=== PATIENT | male | born 1995 | race Caucasian/White ===

== ENCOUNTER 2019-04-25 01:44 | Emergency (ER) | payer MEDICAID ==
[~2019-04-25] VITALS: Ht 175.3 cm; Wt 78.0 kg
[2019-04-25 01:55] VITALS: Ht 175.3 cm; Wt 78.0 kg
[2019-04-25 03:11] VITALS: BP 126/82
== END 2019-04-25 03:11 | disposition home or self-care (01) ==
LOC: ED 01:44
DX: S61.552A Open bite of left wrist, initial encounter (principal); F90.9 Attention-deficit hyperactivity disorder, unspecified type; W54.0XXA Bitten by dog, initial encounter; Y93.89 Activity, other specified; Y92.89 Other specified places as the place of occurrence of the external cause; Y99.8 Other external cause status

== ENCOUNTER 2019-04-27 22:14 | Emergency (ER) | payer MEDICAID ==
[~2019-04-27] VITALS: Ht 175.3 cm; Wt 78.5 kg
[2019-04-27 22:16] VITALS: Ht 175.3 cm; Wt 78.5 kg
[2019-04-27 23:45] VITALS: BP 123/70
== END 2019-04-27 23:45 | disposition home or self-care (01) ==
LOC: ED 22:14
DX: S51.851D Open bite of right forearm, subsequent encounter (principal); F90.9 Attention-deficit hyperactivity disorder, unspecified type; W54.0XXA Bitten by dog, initial encounter; Y93.89 Activity, other specified; Y92.89 Other specified places as the place of occurrence of the external cause; Y99.8 Other external cause status
CPT/HCPCS: 90715